=== PATIENT | male | born 1960 ===

== ENCOUNTER 2018-11-14 07:27 | Outpatient (CLI) | payer MEDICAID | END 2018-11-14 07:28 | disposition home or self-care (01) | LOC: C.CARD 07:27 ==

== ENCOUNTER 2018-11-14 07:42 | Outpatient (CLI) | payer MEDICAID | END 2018-11-14 07:43 | disposition home or self-care (01) | LOC: C.RADH 07:42 | DX: D35.2 Benign neoplasm of pituitary gland (principal) ==